=== PATIENT | female | born 1960 | race Caucasian/White ===

== ENCOUNTER 2020-09-29 10:08 | Emergency (ER) | payer MEDICAID ==
[~2020-09-29] VITALS: Ht 162.6 cm; Wt 61.2 kg
[~2020-09-29 10:08] MED LIST: BP MED
[2020-09-29 10:32] LABS: *BILIRUBIN,URIN NEGATIVE (NEGATIVE); *BLOOD, URINE 2+ (NEGATIVE); *CLARITY,URINE TURBID (CLEAR); *COLOR,URINE YELLOW (YELLOW); *KETONES,URINE NEGATIVE (NEGATIVE); *UROBILINOGEN,URINE 0.2 E.U./dl (NORMAL); LEUKOCYTE ESTERASE ,URINE 3+ (NEGATIVE); NITRITE, URINE POSITIVE (NEGATIVE); PH,URINE 6.5 (5.0-8.0); UGLUCOSE NEGATIVE (NEGATIVE)
--- NOTE | 2020-09-29 10:40 | NUR ---
Patient discharged to home in stable condition. Written and verbal after care instructions given. Patient verbalizes understanding of instructions. Stressed follow up or return to ER for worsening s/s.
[2020-09-29 13:05] LABS: BACTERIA,URINE MODERATE /HPF (NONE SEEN); SQUAMOUS EPITHELIAL CELL,UR FEW /HPF (NONE SEEN); WBC,URINE 80-100 /HPF (0-3)
== END 2020-09-29 10:41 | disposition home or self-care (01) ==
LOC: ER 10:08
DX: N39.0 Urinary tract infection, site not specified (principal); Z87.440 Personal history of urinary (tract) infections; Z90.710 Acquired absence of both cervix and uterus
CPT/HCPCS: 87086; A4663

== ENCOUNTER 2021-09-11 11:29 | Emergency (ER) | payer MEDICAID ==
[~2021-09-11] VITALS: Ht 162.6 cm; Wt 61.2 kg
--- NOTE | 2021-09-11 11:34 | NUR ---
Aashish ocampo in [facility] - 09/11/21 at 1159 by WESLEY Patient was seen by Dr Felipe IBARRA and follow up instructions given and explained to patient who states he understands all instructions
--- NOTE | 2021-09-11 12:06 | NUR ---
Patient was seen by Dr Wang. COvid swab sent to lab
[2021-09-11] MEDS ORDERED: AZIT250T13 PO (12:40)
--- NOTE | 2021-09-11 12:48 | NUR ---
DC, Rx and follow up instructions given and explained to patient who states she understands all instructions (in Maldivian using management services technician)
== END 2021-09-11 12:49 | disposition home or self-care (01) ==
LOC: ER 11:29
DX: J40 Bronchitis, not specified as acute or chronic (principal); Z20.822 Contact with and (suspected) exposure to COVID-19; J45.909 Unspecified asthma, uncomplicated; I10 Essential (primary) hypertension; Z90.710 Acquired absence of both cervix and uterus
CPT/HCPCS: 71045; A4663

== ENCOUNTER 2021-11-05 14:35 | Emergency (ER) | payer MEDICAID ==
[~2021-11-05] VITALS: Ht 154.9 cm; Wt 63.5 kg
[~2021-11-05 14:35] MED LIST changes: +AZIT250T13 PO
--- NOTE | 2021-11-05 14:42 | NUR ---
Patient ambulatory, alert and orientedx4, complaints of pain/burning when urinating for 4 days. History of hypertension, no episodes of nausea or vomiting, vitals stable.
[2021-11-05] MEDS ORDERED: AMLO-212 PO (14:48)
--- NOTE | 2021-11-05 14:51 | NUR ---
MD at bedside. medical screening exam in process.
[2021-11-05 14:59] LABS: *BILIRUBIN,URIN NEGATIVE (NEGATIVE); *CLARITY,URINE SLIGHTLY CLOUDY (CLEAR); *COLOR,URINE YELLOW (YELLOW); *KETONES,URINE NEGATIVE (NEGATIVE); *UROBILINOGEN,URINE 0.2 E.U./dl (NORMAL); LEUKOCYTE ESTERASE ,URINE 2+ (NEGATIVE); NITRITE, URINE POSITIVE (NEGATIVE); PH,URINE 5.5 (5.0-8.0); UGLUCOSE NEGATIVE (NEGATIVE)
[2021-11-05 15:00] LABS: *BLOOD, URINE TRACE (NEGATIVE)
[2021-11-05] MEDS ORDERED: CEphaleXIN 500 MG CAPSULE ONE (15:22)
[2021-11-05] MEDS ORDERED: ACETAMINOPHEN 325 MG TABLET ONE (15:22)
[2021-11-05 15:23] LABS: RBC,URINE 0-3 /HPF (0-3)
[2021-11-05 15:24] LABS: BACTERIA,URINE MANY /HPF (NONE SEEN); SQUAMOUS EPITHELIAL CELL,UR MODERATE /HPF (NONE SEEN); WBC,URINE 50-80 /HPF (0-3)
[2021-11-05] MEDS ORDERED: CEPH500C2 PO (15:25)
[2021-11-05] MEDS ORDERED: ACET-2154 PO (15:25)
[2021-11-05] MEDS ORDERED: ACETAMINOPHEN 325 MG TABLET PO ONE (15:30)
[2021-11-05] MEDS ORDERED: CEphaleXIN 500 MG CAPSULE PO ONE (15:30)
[2021-11-05 15:34] VITALS: BP 135/85
== END 2021-11-05 15:35 | disposition home or self-care (01) ==
LOC: ER 14:35
DX: N39.0 Urinary tract infection, site not specified (principal); I10 Essential (primary) hypertension; Z90.710 Acquired absence of both cervix and uterus
CPT/HCPCS: 87077; 87086; A4663

== ENCOUNTER 2021-12-14 11:36 | Inpatient (IN) | payer MEDICAID ==
[~2021-12-14] VITALS: Ht 154.9 cm; Wt 64.9 kg
[~2021-12-14 11:36] MED LIST changes: +ACET-2154 PO; +AMLO-212 PO; +CEPH500C2 PO
--- NOTE | 2021-12-14 11:57 | NUR ---
Dr Ulrich at the bedside for MSE.
--- NOTE | 2021-12-14 11:58 | NUR ---
Aashish ocampo in [facility] - 12/14/21 at [address] ARGUELLO AT BEDSIDE FOR EVALUATION.
[2021-12-14] MEDS ORDERED: ONDANSETRON 4 MG/2 ML VIAL IV ONE (12:00)
[2021-12-14] MEDS ORDERED: IV NORMAL SALINE 1000 ML BAG IV ONE (12:00)
[2021-12-14] MEDS ORDERED: ONDANSETRON 4 MG/2 ML VIAL ONE (12:05)
[2021-12-14 12:14] LABS: HEMATOCRIT 38.5 % (31.2-41.9); MEAN CORPUSCULAR HEMOGLOBIN 30.8 uug (24.7-32.8); PLATELET COUNT (AUTO) 258 K/uL (179-408)
[2021-12-14 12:24] LABS: BILIRUBIN,DIRECT 0.1 mg/dL (0.0-0.2); BILIRUBIN,TOTAL 0.3 mg/dL (0.2-1.0); CREATININE 2.9 mg/dL (0.6-1.3); POTASSIUM 3.2 mmol/L (3.5-5.1)
[2021-12-14] MEDS ORDERED: POTASSIUM CHLORIDE 20 MEQ TAB.PRT.SR PO ONE (12:45)
--- NOTE | 2021-12-14 12:45 | NUR ---
Pt able to tolorate PO fluid.
[2021-12-14] MEDS ORDERED: POTASSIUM CHLORIDE 20 MEQ TAB.PRT.SR ONE (12:46)
--- NOTE | 2021-12-14 13:00 | NUR ---
Patient admitted to med surg for ARF and gastroenteritis. patient is Japanese speaking, is a good historian. AAOx4, c/o tightness/ pressure and cramping to abd, bowel sounds are hyperactive Patient had one episode of emesis and diarrhea before coming to ER. Patient still noted with mild nausea, some dizziness. ABD is soft and non distended. Patient is scared and tearful, company, listening and comfort provided. Safety measures started, call light within reach.
--- NOTE | 2021-12-14 13:17 | NUR ---
Dr Ulrich spoke to Dr Jang for M/S admit.
[2021-12-14] MEDS ORDERED: LISI1TAB29 PO (13:29)
[2021-12-14 14:21] LABS: *BILIRUBIN,URIN NEGATIVE (NEGATIVE); *BLOOD, URINE NEGATIVE (NEGATIVE); *CLARITY,URINE CLEAR (CLEAR); *COLOR,URINE YELLOW (YELLOW); *KETONES,URINE 1+ (NEGATIVE); *UROBILINOGEN,URINE 0.2 E.U./dl (NORMAL); LEUKOCYTE ESTERASE ,URINE NEGATIVE (NEGATIVE); NITRITE, URINE NEGATIVE (NEGATIVE); UGLUCOSE NEGATIVE (NEGATIVE)
--- NOTE | 2021-12-14 14:37 | NUR ---
Pt transfered via wheelchair to m/s bed.
[2021-12-14 14:48] VITALS: BP 129/78
[2021-12-14] MEDS ORDERED: TEMAZEPAM 15 MG CAPSULE PO PRN (16:15)
[2021-12-14] MEDS ORDERED: ONDANSETRON 4 MG/2 ML VIAL IV PRN (16:15)
[2021-12-14] MEDS ORDERED: MORPHINE SULFATE 2 MG/1 ML DISP.SYRIN IV PRN (16:15)
[2021-12-14] MEDS ORDERED: ACETAMINOPHEN 325 MG TABLET PO PRN (16:15)
--- NOTE | 2021-12-14 19:30 | NUR ---
Received pt awake, alert and orientedx4. Pt in no acute distress. Iv intact. Safety and comfort provided. Will continue to monitor.
[2021-12-14 20:00] VITALS: BP 120/71
[2021-12-14] MEDS: POTASSIUM CHLORIDE 20 MEQ in IV D5 1/2 NS 1000 ML 1,000 ML IV PRN (21:40)
--- NOTE | 2021-12-14 23:41 | NUR ---
at 2153H Zofran 4mg prn given to pt for nausea and 1 emesis. Pt tolerated it well. After an hour pt stated she is okay. Pt in no acute distress.Pt was also given Restoril prn at 214H for sleep as per pt request. Will continue to monitor.
[2021-12-15 04:26] VITALS: BP 202/55
--- NOTE | 2021-12-15 06:27 | NUR ---
Pt slept intermittently.Pt iv intact and patent. Safety and comfort provided. All needs are met. Vital signs within normal limit. Will endorse to incoming nurse for continuity of care.
[2021-12-15] MEDS: PANTOPRAZOLE SODIUM 40 MG TABLET.DR PO SCH (06:29)
[2021-12-15] MEDS: POTASSIUM CHLORIDE 20 MEQ in IV D5 1/2 NS 1000 ML 1,000 ML IV PRN ×2 (06:34→18:57)
[2021-12-15 06:48] LABS: HEMATOCRIT 34.3 % (31.2-41.9); MEAN CORPUSCULAR VOLUME 88.3 fL (75.5-95.3); PLATELET COUNT (AUTO) 229 K/uL (179-408)
[2021-12-15 06:58] LABS: NEUTROPHILS % (MANUAL) 0 % (42-75)
[2021-12-15 07:19] LABS: BILIRUBIN,TOTAL 0.2 mg/dL (0.2-1.0); CREATININE 1.4 mg/dL (0.6-1.3); MAGNESIUM 1.9 mg/dL (1.8-2.4); PHOSPHOROUS 2.5 mg/dL (2.5-4.9); POTASSIUM 3.5 mmol/L (3.5-5.1); TOTAL PROTEIN, SERUM 6.9 g/dL (6.4-8.2)
--- NOTE | 2021-12-15 07:46 | NUR ---
AWAKE ALERT AND ORIENTED DENIES PAIN OR DISCOMFORTS AT THIS TIME NO NAUSEA OR VOMITING AT THIS TIME REMAIN ON IVF ORDERED WITH NO S/S OF INFILTERATION ON SITE CALL OIGHTS AND PERSONAL BELONGINGS ARE WITHIN EASY REACH AT THIS TIME WILL CONTINUE TO OBSERVE.
[2021-12-15 09:16] VITALS: BP 104/65
[2021-12-15] MEDS ORDERED: ACIDOPHILUS/BULGARICUS CHEW TAB PO SCH (11:15)
[2021-12-15 11:58] VITALS: BP 128/80
[2021-12-15] MEDS: ACIDOPHILUS/BULGARICUS CHEW TAB PO SCH ×2 (11:59→21:08)
--- NOTE | 2021-12-15 16:03 | NUR ---
ASSISTED TO THE TOILET AND PATIENT VOIDED STOOL OBTAINED AND SENT TO THE LAB ORDERED WILL OBSERVE.
[2021-12-15 16:28] VITALS: BP 124/71
--- NOTE | 2021-12-15 18:00 | NUR ---
RESTING IN BED DENIES DISCOMFORTS CALL LIGHTS ARE WITHIN EASY REACH AT THIS TIME WILL CONTINUE TO OBSERVE.
--- NOTE | 2021-12-15 19:30 | NUR ---
Received patient lying in bed. AAOx4, mainly Turkish speaking. In no acute distress. Denies any pain or SOB. IV site on left AC intact and patent. IVF infusing. No LBM noted at this time. Contact precaution observed. Safety measure initiated and call light within reached.
[2021-12-15 20:00] VITALS: BP 123/75
[2021-12-16 04:00] VITALS: BP 110/65
[2021-12-16] MEDS: POTASSIUM CHLORIDE 20 MEQ in IV D5 1/2 NS 1000 ML 1,000 ML IV PRN (04:16)
[2021-12-16] MEDS: ACIDOPHILUS/BULGARICUS CHEW TAB PO SCH ×2 (05:09→13:28)
--- NOTE | 2021-12-16 05:35 | NUR ---
Patient slept well during the night. In no acute distress. Denies any SOB. Complained of headache this AM and given Tylenol 650mg PO PRN per order. IV site on left AC intact and patent. IVF infusing. No LBM through out the shift. Contact precaution observed. Safety measure maintained and call light within reached.
[2021-12-16] MEDS: PANTOPRAZOLE SODIUM 40 MG TABLET.DR PO SCH (06:08)
--- NOTE | 2021-12-16 06:44 | NUR ---
Patient requested to have IV site change. Per ot IV site on left AC feels tender and sore. Still intact and flushing well, but discontinued per pt request. Started new IV on right hand #22G.
--- NOTE | 2021-12-16 10:13 | NUR ---
Pt is a/ox 4, no complaint of pain at this time. Pt has not had a loose stool during PM shift upon report. Will continue to monitor. Comfort measures provided, call light within reach.
--- NOTE | 2021-12-16 10:49 | NUR ---
Susan COMER, will advance diet. If tolerated well, plan is to discharge home. Pt has no complaints of nausea, vomiting or pain at this time.
[2021-12-16] MEDS ORDERED: ENSURE ENLIVE (VAN) 240 ML LIQUID PO SCH (11:30)
[2021-12-16 11:36] VITALS: BP 136/80
[2021-12-16] MEDS ORDERED: ACID1TAB4 PO (12:45)
[2021-12-16] MEDS ORDERED: CALC1TAB95 PO (12:45)
[2021-12-16 16:00] VITALS: BP 157/85
--- NOTE | 2021-12-16 16:05 | NUR ---
Pt is being discharged home. Pt is a/o x 4, no signs of acute distress. Pt tolerated advanced diet well, no complaint of nausea, vomiting, or abdominal pain. All personal belongings at hand, all discharge education provided for patient. Directions to pharmacy provided and home medications returned. IV/ID band removed. Pt was walked down to lobby to await private car.
== END 2021-12-16 16:05 | disposition home or self-care (01) | DRG 249 ==
LOC: ER 11:36 → MEDSURG3 14:22
PROVIDERS: ADMIT Internal Medicine; ATTEND Nurse Practitioner Acute Care
DX: A08.4 Viral intestinal infection, unspecified (principal); N17.0 Acute kidney failure with tubular necrosis; E86.0 Dehydration; E87.6 Hypokalemia; E66.9 Obesity, unspecified; I10 Essential (primary) hypertension; Z87.440 Personal history of urinary (tract) infections; Z90.49 Acquired absence of other specified parts of digestive tract; Z20.822 Contact with and (suspected) exposure to COVID-19; Z68.27 Body mass index [BMI] 27.0-27.9, adult
CPT/HCPCS: 36415; 70030-TC; 71045; 83690; 83735; 84100; 85025; 93005; A4663; G0378; J2405; J3480; J7040

== ENCOUNTER 2022-06-21 20:42 | Emergency (ER) | payer MEDICAID, OTHER ==
[~2022-06-21] VITALS: Ht 165.1 cm; Wt 65.8 kg
[~2022-06-21 20:42] MED LIST changes: -ACET-2154 PO; +ACID1TAB4 PO; -AMLO-212 PO; -AZIT250T13 PO; -BP MED; +CALC1TAB95 PO; -CEPH500C2 PO; +LISI1TAB29 PO
[2022-06-21] MEDS ORDERED: ONDANSETRON 4 MG/2 ML VIAL IV ONE (21:30)
[2022-06-21] MEDS ORDERED: IV NORMAL SALINE 1000 ML BAG IV ONE (21:30)
[2022-06-21] MEDS ORDERED: HYDROMORPHONE 1 MG/1 ML DISP.SYRIN IV ONE (21:45)
[2022-06-21] MEDS ORDERED: HYDROMORPHONE 1 MG/1 ML DISP.SYRIN ONE (22:02)
[2022-06-21] MEDS ORDERED: ONDANSETRON 4 MG/2 ML VIAL ONE (22:02)
[2022-06-21 22:07] LABS: HEMATOCRIT 34.6 % (31.2-41.9); MEAN CORPUSCULAR HEMOGLOBIN 31.3 uug (24.7-32.8); MEAN CORPUSCULAR VOLUME 90.9 fL (75.5-95.3); PLATELET COUNT (AUTO) 223 K/uL (179-408)
[2022-06-21 22:16] LABS: CARBON DIOXIDE 25 mmol/L (21-32); CHLORIDE 102 mmol/L (98-107); CREATININE 1.3 mg/dL (0.6-1.3); GLUCOSE 118 mg/dL (74-106); POTASSIUM 3.4 mmol/L (3.5-5.1); UREA NITROGEN, BLOOD 29 mg/dL (7-18)
[2022-06-21 22:25] LABS: ALANINE AMINOTRANSFERASE 26 U/L (14-59); ALKALINE PHOSPHATASE 88 U/L (50-136); ASPARTATE AMINOTRANSFERASE 19 U/L (15-37); BILIRUBIN,DIRECT 0.1 mg/dL (0.0-0.2); BILIRUBIN,TOTAL 0.4 mg/dL (0.2-1.0); TOTAL PROTEIN, SERUM 7.1 g/dL (6.4-8.2)
[2022-06-21] MEDS ORDERED: AMLO-212 PO (22:38)
[2022-06-21] MEDS ORDERED: LISI1TAB29 PO (22:38)
[2022-06-22] MEDS ORDERED: METOCLOPRAMIDE HCL 10 MG/2 ML VIAL ONE (00:15)
[2022-06-22] MEDS ORDERED: diphenhydrAMINE 50 MG/1 ML VIAL ONE (00:15)
[2022-06-22] MEDS ORDERED: METOCLOPRAMIDE HCL 10 MG/2 ML VIAL IV ONE (01:30)
[2022-06-22] MEDS ORDERED: diphenhydrAMINE 50 MG/1 ML VIAL IV ONE (01:30)
--- NOTE | 2022-06-22 03:54 | NUR ---
Called [facility] ambulance for transport. ETA [phone].
--- NOTE | 2022-06-22 04:00 | NUR ---
DR MCKEON GAVE SBAR REPORT TO JASBIR, EMERGENCY ROOM CHARGE NURSE FROM [facility] .
--- NOTE | 2022-06-22 04:17 | NUR ---
Fredo from [facility] gave ambulance authorization number [id number].
== END 2022-06-22 05:00 | disposition short-term general hospital (02) ==
LOC: ER 20:43
DX: R55 Syncope and collapse (principal); R10.9 Unspecified abdominal pain; Z90.49 Acquired absence of other specified parts of digestive tract; Z87.440 Personal history of urinary (tract) infections; R00.1 Bradycardia, unspecified; R11.0 Nausea; Z98.890 Other specified postprocedural states
CPT/HCPCS: 99285; 70450; 96374; 71045; 96361; 96375 ×2; 87426; 80076; 80048; 85025; 84484 ×2; 36415; 93005; 74176; J2405; J1170; J7040; J1200; J2765; A4663